=== PATIENT | male | born 1945 | race Caucasian/White ===

== ENCOUNTER 2020-10-19 07:43 | Emergency (ER) | payer MEDICARE ==
[~2020-10-19] VITALS: Ht 182.9 cm; Wt 82.6 kg
[2020-10-19 07:45] VITALS: BP 164/80
[2020-10-19] MEDS ORDERED: LIDOCAINE VISCOUS ONE (08:01)
[2020-10-19] MEDS ORDERED: MYLANTA ONE (08:01)
[2020-10-19] MEDS ORDERED: LIDOCAINE VISCOUS PO STA (08:02)
[2020-10-19] MEDS ORDERED: MYLANTA PO STA (08:02)
--- NOTE | 2020-10-19 08:08 | ER.PDOC ---
General Chief Complaint: Requesting Medical Care Stated Complaint: ABD PAIN Time seen by MD: 07:52 Source: patient, family Exam Limitations: no limitations History of Present Illness Initial Comments Pt c/o upper/epigastric abd pain that started 2 days ago, gradual onset Severity/Quality: moderate, burning, sharpness Radiation: no radiation Associated Symptoms: denies symptoms Exacerbated by: supine, food Relieved By: nothing Vital Signs First Vital Signs Date Time Temp Pulse Resp B/P (MAP) Pulse Ox O2 Delivery O2 Flow Rate FiO2 10/19/20 07:45 98.9 90 20 164/80 (108) 95 Room Air Last Vital Signs Date Time Temp Pulse Resp B/P (MAP) Pulse Ox O2 Delivery O2 Flow Rate FiO2 10/19/20 09:00 71 165/85 (111) 95 10/19/20 07:45 98.9 20 10/19/20 07:45 Room Air Family History Significant Family History: no pertinent family hx Constitutional: no symptoms reported; denies chills, denies fever EENTM: no symptoms reported Respiratory: no symptoms reported Cardiovascular: no symptoms reported Gastrointestinal: abdominal pain; denies constipated, denies diarrhea, denies nausea, denies vomiting; other (decreased PO intake yesterday and today) Genitourinary: no symptoms reported Musculoskeletal: no symptoms reported Skin: no symptoms reported Psychiatric/Neurological: no symptoms reported Endocrine: no symptoms reported Hematologic/Lymphatic: no symptoms reported All Other Systems: Reviewed and Negative Physical Exam General Appearance: No Apparent Distress HEENT: PERRL/EOMI, Normal ENT Inspection Neck: Non-Tender, Normal Inspection Respiratory: chest non-tender, lungs clear Cardiovascular: Normal Peripheral Pulses, Regular Rate, Rhythm, No Edema Gastrointestinal: Normal Bowel Sounds, No Organomegaly, No Pulsatile Mass, Tenderness (mild, epigastrum) Rectal: Deferred Back: Normal Inspection, No CVA Tenderness Extremities: Normal Range of Motion, No Pedal Edema Neurologic/Psychiatric: No Motor/Sensory Deficits, Alert, Oriented x 3 Skin: Normal Color, Warm/Dry Lymphatic: No Adenopathy Results/Orders Results/Orders Orders - LIBRA CHAWLA DO Cbc With Auto Diff (10/19/20 07:52) Comprehensive Metabolic Panel (10/19/20 07:52) Lipase (10/19/20 07:52) Helicobacter Pylori (10/19/20 07:52) Lidocaine Hcl (Lidocaine Viscous) (10/19/20 08:01) Mag Hydrox/Aluminum Hyd/Simeth (Mylanta) (10/19/20 08:01) Mag Hydrox/Aluminum Hyd/Simeth (Mylanta) (10/19/20 08:02) Lidocaine Hcl (Lidocaine Viscous) (10/19/20 08:02) Ct Abd/Pel With Iv Contrast (10/19/20 08:46) Troponin I (10/19/20 08:46) Morphine Sulfate (Morphine Sulfate) (10/19/20 08:46) Ondansetron Hcl/Pf (Zofran) (10/19/20 09:00) Ondansetron Hcl/Pf (Zofran) (10/19/20 08:54) Morphine Sulfate (Morphine Sulfate) (10/19/20 08:55) Novel Coronavirus 2019(Dshs) (10/19/20 09:57) Vital Signs Date Time Temp Pulse Resp B/P (MAP) Pulse Ox O2 Delivery O2 Flow Rate FiO2 10/19/20 09:00 71 165/85 (111) 95 10/19/20 07:45 98.9 90 20 95 10/19/20 07:45 98.9 90 20 10/19/20 07:45 98.9 90 20 164/80 (108) 95 Room Air Administered Medications Medications (Trade) Dose Ordered Sig/Ignacia Route PRN Reason Start Time Stop Time Status Last Admin Dose Admin Lidocaine HCl (Lidocaine Viscous) 20 ml STAT STAT PO 10/19/20 08:02 10/19/20 08:05 DC 10/19/20 08:08 20 ML Morphine Sulfate (Morphine Sulfate) 4 mg STAT STAT IV 10/19/20 08:46 10/19/20 08:50 DC 10/19/20 09:01 4 MG Ondansetron HCl (Zofran) 4 mg Q4H PRN IV NAUSEA / VOMITING 10/19/20 09:00 11/18/20 08:59 10/19/20 09:02 4 MG Laboratory Tests Test 10/19/20 08:05 White Blood Count 4.5 10^3/uL (4.5-11.0) Red Blood Count 4.23 10^6/uL (4.50-5.90) L Hemoglobin 13.4 g/dL (13.9-16.3) L Hematocrit 40.2 % (37.0-53.0) Mean Corpuscular Volume 95.0 fL (78-100) Mean Corpuscular Hemoglobin 31.7 pg (26-34) Mean Corpuscular Hemoglobin Concent 33.3 g/dL (33-36.5) Red Cell Distribution Width 13.2 % (11.5-14.5) Platelet Count 201 10^3/uL (150-400) Mean Platelet Volume 9.0 fL (7.8-11.0) Neutrophils (%) (Auto) 65.8 % (41.0-85.0) Lymphocytes (%) (Auto) 25.7 % (24.0-44.0) Monocytes (%) (Auto) 8.3 % (5.0-12.0) Neutrophils # (Auto) 2.9 10^3/uL (1.8-7.7) Lymphocytes # (Auto) 1.15 10^3/uL1 (1.0-4.8) Monocytes # (Auto) 0.4 10^3/uL (0.3-0.8) Absolute Immature Granulocyte (auto 0 10^3 u/L (0-2) Absolute Eosinophils (auto) 0.0 10^3/uL (0.0-0.2) Immature Granulocytes % 0.00 % (0.00-0.50) Eosinophils % 0.0 % (0.0-5.0) Basophils % 0.2 % (0.0-0.2) Basophils # 0.0 10^3/uL (0.0-0.1) Sodium Level 137 mmol/L (132-145) Potassium Level 4.1 mmol/L (3.6-5.2) Chloride Level 102.0 mmol/L (96-109) Carbon Dioxide Level 23.2 mmol/L (20.0-32) Anion Gap 15.9 Blood Urea Nitrogen 10 mg/dL (7-18) Creatinine 1.17 mg/dL (0.59-1.40) Estimated GFR () 73.5 (>/=60) Est GFR (CKD-EPI)(Non-Afr [place]er) 60.8 (>/=60) BUN/Creatinine Ratio 8.0 Glucose Level 105 mg/dL (70-110) Calcium Level 9.5 mg/dL (8.4-10.5) Total Bilirubin 0.3 mg/dL (0.2-1.0) Aspartate Amino Transferase (AST) 41 U/L (0-35) H Alanine Aminotransferase (ALT) 26 U/L (12-78) Alkaline Phosphatase 45 U/L (50-136) L Troponin I < 0.02 ng/mL (0.00-0.05) Total Protein 7.3 g/dL (6.4-8.2) Albumin 3.7 g/dL (3.4-5.0) Globulin 3.6 Albumin/Globulin Ratio 1.027 Lipase 130 U/L (114-286) Helicobacter pylori Screen NEGATIVE (NEGATIVE) Progress Progress Pt with hiatal hernia on CT, and changes in lung bases that may represent COVID- 19. Swabbed for COVID, will have him f/u with PMD. Symptoms likely due to combination of hiatal hernia and gastritis. Started on Omeprazole, told pt he may need GI referral. ER DEPART Departure Time of Disposition: 10:09 Disposition: 01 HOME, SELF-CARE Impression: Primary Impression: Gastritis Additional Impression: Hiatal hernia Condition: Stable Referrals: PCP,UNKNOWN (PCP) PRIMARY CARE PROVIDER Duration or Time Spent with Pa: 25 Problem Qualifiers Primary Impression: Gastritis Gastritis type: unspecified gastritis Chronicity: acute Gastritis bleeding: without bleeding Qualified Codes: K29.00 - Acute gastritis without bleeding LIBRA CHAWLA DO Oct 19, 2020 08:08
[2020-10-19 08:19] LABS: BASOPHIL % 0.2 % (0.0-0.2); LYMPHOCYTES # 1.15 10^3/uL1 (1.0-4.8); LYMPHOCYTES % 25.7 % (24.0-44.0); MEAN CORP HGB 31.7 pg (26-34); MONOCYTES # 0.4 10^3/uL (0.3-0.8); MONOCYTES % 8.3 % (5.0-12.0); NEUTROPHIL # 2.9 10^3/uL (1.8-7.7); NEUTROPHILS % 65.8 % (41.0-85.0); PLATELET COUNT 201 10^3/uL (150-400); RED CELL DISTRIBUTION WIDTH 13.2 % (11.5-14.5)
[2020-10-19 08:27] LABS: CALCIUM 9.5 mg/dL (8.4-10.5); CARBON DIOXIDE 23.2 mmol/L (20.0-32)
--- NOTE | 2020-10-19 08:45 | NUR ---
RAD CALLED RAMY FOR CT.
[2020-10-19] MEDS ORDERED: MORPHINE SULFATE IV STA (08:46)
[2020-10-19] MEDS ORDERED: ZOFRAN ONE (08:54)
[2020-10-19] MEDS ORDERED: MORPHINE SULFATE ONE (08:55)
[2020-10-19 09:00] VITALS: BP 165/85
[2020-10-19] MEDS ORDERED: ZOFRAN IV PRN (09:00)
--- NOTE | 2020-10-19 09:16 | NUR ---
CT PT TO CT VIA STRETCHER.
--- NOTE | 2020-10-19 09:27 | NUR ---
CT PT BACK FROM CT IN STABLE CONDITION.
--- NOTE | 2020-10-19 09:46 | DIREP ---
PROCEDURE:CT ABDOMEN/PELVIS W/ CONTRAST COMPARISON:None. INDICATIONS:upper abd pain TECHNIQUE:Axial images were created through the abdomen and pelvis with non-ionic intravenous contrast material. No oral contrast was administered. Sagittal and coronal reconstructions were performed from source images. FINDINGS: LUNG BASES:Subtle variable ground-glass opacities, concerning for COVID-19 pneumonia. Clinical correlation for risk factors recommended. Moderate hiatal hernia LIVER:Multiple hepatic cysts. No solid mass is identified BILIARY:Multiple gallstones. Gallbladder otherwise unremarkable. PANCREAS:Normal. No lesion, fluid collection, ductal dilatation, or atrophy. SPLEEN:Normal. No enlargement or focal lesion. ADRENALS:Normal. No mass or enlargement. URINARY TRACT:Multiple bilateral renal cysts, these are simple in appearance. Largest on the right, 8.5 cm in diameter. Some are subcentimeter in size, limiting full evaluation AORTA/VASCULAR:Normal. No aneurysm. RETROPERITONEUM:Normal. No mass or adenopathy. BOWEL/MESENTERY:Scattered sigmoid diverticula. No CT evidence of acute diverticulitis. The appendix is not identified. There is no free air. No free fluid. No suspected abscess ABDOMINAL WALL:Normal. No mass or hernia. PELVIC ORGANS:Normal. No visible mass. Pelvic organs appropriate for patient age. BONES:Degenerative changes, predominantly L5-S1 OTHER:Negative. CONCLUSION:Bibasilar ground-glass opacities, concerning for COVID-[address] pneumonia[address] without CT evidence of diverticulitis. Gallstones, gallbladder otherwise unremarkable. Hepatic, and renal cysts. Dictated by: Trae Rhodes MD on 10/19/2020 at 09:39 AM
--- NOTE | 2020-10-19 10:15 | NUR ---
iv 20G IV DC'D FROM LEFT AC, CATHETER INTACT.
== END 2020-10-19 10:15 | disposition home or self-care (01) ==
LOC: ER 07:43
DX: U07.1 COVID-19 (principal); K29.00 Acute gastritis without bleeding; K44.9 Diaphragmatic hernia without obstruction or gangrene; Z79.899 Other long term (current) drug therapy
CPT/HCPCS: 36415; 74177; 80053; 83690; 84484; 85025; 86677; 87635; 96374; 96375; 99285; J2270; J2405; J3490; Q9965